=== PATIENT | male | born 2005 | race African-American/Black ===

== ENCOUNTER 2023-04-10 17:19 | Emergency (ER) | payer OTHER, SELFPAY ==
[2023-04-10 17:27] VITALS: BP 149/87; PULSE 103; RESP 20; TEMP 37.7; O2SAT 100
--- NOTE | 2023-04-10 17:29 | ED.DENTAL ---
HPI - Dental/Oral General Chief complaint: Dental/Oral Stated complaint: abcess tooth Time Seen by Provider: 04/10/23 17:29 Source: patient, RN notes reviewed and old records reviewed Mode of arrival: ambulatory Limitations: no limitations History of Present Illness HPI Narrative: 17-year-old male presents to the [facility] with complaints of dental pain. Stay he broke his tooth 4-5 days ago. To the affected is right lower posterior molar Related Data Home Medications Medication Instructions Recorded Confirmed quetiapine 200 mg tablet,extended 200 mg PO QPM 04/10/23 04/10/23 release 24 hr Allergies Allergy/AdvReac Type Severity Reaction Status Date / Time No Known Allergies Allergy Verified 04/10/23 17:35 Review of Systems Review of Systems: All systems reviewed & are unremarkable except as noted in HPI and below Constitutional: Constitutional: Reports no additional constitutional complaints Eyes: Eyes: Reports no additional eye complaints ENT: Reports as per HPI and Reports dental pain Cardiovascular: Cardiovascular: Reports no additional cardiovascular complaints, Denies chest pain and Denies dyspnea Respiratory: Respiratory: Reports no additional respiratory complaints, Denies chest congestion, Denies cough and Denies dyspnea Gastrointestinal: Gastrointestinal: Reports no additional gastrointestinal complaints, Denies abdominal pain, Denies nausea and Denies vomiting Musculoskeletal: Musculoskeletal: Reports no additional musculoskeletal complaints Integumentary/Breasts: Skin/Breast: Reports system reviewed and no additional complaints, except as docu Neurologic: Reports system reviewed and no additional complaints, except as documented Psychiatric: Psychiatric: Reports no additional psychiatric complaints Allergic/Immunologic: Allergic/Immunologic: Reports no additional allergic/immunologic complaints PMFSH Comments At the time of my signature, I reviewed and agree with the nursing past medical, surgical, social, and family history. There is no relevant family history pertinent to the patient complaint. Exam Const: General: cooperative, healthy appearing, comfortable, no acute distress, well developed, alert and well nourished Nutritional Appearance: well nourished Orientation/consciousness: patient oriented x3 Limitations: no limitations HENMT: Head: normal to inspection Ears: hearing grossly normal bilaterally and external ears normal Face/Nose/Sinus: Normal external nose present, Normal nares present, Normal nasal mucous membranes and turbinates present, normal facial exam and face symmetric Face and sinus: normal facial exam and face symmetric Mouth: Yes Normal oral and palatal mucosa present, Yes lip normal and Yes moist mucous membranes Teeth image: 1. Fracture tooth with surrounding erythema and swelling to the gingiva. No fluctuance. No facial swelling, no facial erythema Throat: posterior oropharynx normal and uvula midline Eyes: General: appearance normal, both eyes and all related structures Alignment and Position: alignment normal Periorbital: periorbital findings normal Pupils: Equal, round and reactive pupils present EOM: EOMs intact bilaterally Neck: Neck: normal visual inspection, full ROM, no lymphadenopathy and no meningeal signs Chest: Chest palpation & inspection: normal inspection of the chest Resp: Effort & Inspection: normal respiratory effort and able to speak in complete sentences Auscultation: clear to auscultation bilaterally, no crackles, no rales, no rhonchi and no wheezes Cardio: Rate: regular rate Rhythm: regular rhythm Back/Spine/Pelvis: Cervical Spine: cervical ROM normal Skin: General skin exam: normal color and no rashes or lesions noted Lesions: no lesions Rashes: no rashes Wounds: no wounds Neuro: General: patient oriented x3, gait normal, tone normal, moves all extremities and no meningeal signs Cranial nerves: Yes Equal, round and
== END 2023-04-10 17:45 | disposition home or self-care (01) ==
PROVIDERS: Emergency Provider Nurse Practitioner
DX: K02.9 Dental caries, unspecified (principal); F31.9 Bipolar disorder, unspecified
CPT/HCPCS: 99213; G0463

== ENCOUNTER 2023-07-23 15:24 | Emergency (ER) | payer OTHER, SELFPAY ==
[2023-07-23 15:29] VITALS: BP 124/70; PULSE 104; RESP 18; TEMP 36.9; O2SAT 100
--- NOTE | 2023-07-23 16:02 | ED.DENTAL ---
HPI - Dental/Oral General Chief complaint: Dental/Oral Stated complaint: Toothache/Facial Swelling Time Seen by Provider: 07/23/23 15:57 Source: patient and RN notes reviewed Mode of arrival: ambulatory Limitations: no limitations History of Present Illness HPI Narrative: Patient presents today with left lower tooth pain x1 week. No fever, shortness of breath, difficulty swallowing. Currently rates pain 7/10 and has been taking ibuprofen with mild relief. Patient does not have a dentist. Related Data Home Medications Medication Instructions Recorded Confirmed quetiapine 200 mg tablet,extended 200 mg PO QPM 04/10/23 07/23/23 release 24 hr Allergies Allergy/AdvReac Type Severity Reaction Status Date / Time No Known Allergies Allergy Verified 07/23/23 15:52 Review of Systems Review of Systems: CONSTITUTIONAL: Denies body aches, fever, chills, or sweats. EYES: Denies visual changes, redness, or discharge. ENT: Denies rhinorrhea, congestion, sore throat, or otalgia.+ tooth pain CARDIOVASCULAR: Denies chest pain, palpitations, or edema. RESPIRATORY: Denies cough or dyspnea. GASTROINTESTINAL: Denies abdominal pain, nausea, vomiting, or diarrhea. GENITOURINARY: Denies dysuria or hematuria. SKIN: Denies rash, itching, or wounds. MUSCULOSKELETAL: Denies back pain, joint pain, or myalgia. NEUROLOGIC: Denies headache, numbness, tingling, or weakness. PSYCH: Denies depression or anxiety. PMFSH Comments At time of signature, I have reviewed and agree with nursing past medical, surgical, social and family history unless otherwise noted. Please see nursing chart for further information. There is no relevant family history pertinent to the presenting complaint Exam Narrative: GENERAL: Well-appearing, well-nourished, and in no acute distress. HEAD: Normocephalic, atraumatic. EYES: EOMI. No redness or drainage. Conjunctivae normal. ENT: Mucous membranes pink and moist. Nares clear. No rhinorrhea. Pain to tooth number 19. No surrounding edema, erythema, periapical abscess. No trismus. Mild swelling of the left lower jaw line. No obvious fracture. Teeth are in pretty good condition. NECK: Normal AROM. Supple. No lymphadenopathy. CHEST: No respiratory distress. EXTREMITIES: Normal range of motion. No edema. SKIN: Warm, dry, no rash. Capillary refill normal. Normal skin turgor. NEURO: No focal deficits. Alert and oriented x3. Gait steady. PSYCH: Normal affect. No signs of depression or anxiety. Course Course Level of Care: Express Care Visit Vital Signs Vital signs: Vital Signs Temperature 98.4 F 07/23/23 15:29 Pulse Rate 104 H 07/23/23 15:29 Respiratory Rate 18 07/23/23 15:29 Blood Pressure 124/70 07/23/23 15:29 Pulse Oximetry 100 07/23/23 15:29 Oxygen Delivery Room Air 07/23/23 15:29 Temperature 98.4 F 07/23/23 15:29 Pulse Rate 104 H 07/23/23 15:29 Respiratory Rate 18 07/23/23 15:29 Blood Pressure 124/70 07/23/23 15:29 Pulse Oximetry 100 07/23/23 15:29 Oxygen Delivery Room Air 07/23/23 15:29 Reviewed MDM - Dental/Oral MDM Narrative Medical decision making narrative: Patient will be placed on a course of amoxicillin for presumed dental infection. Recommend dental follow-up. List of dentists will be provided to patient. ER precautions given. Differential Diagnosis Differential diagnosis: Likely gingival abscess, dental caries, toothache, dental abscess and fracture of tooth Critical Care Time Critical Care Time Critical Care Time: No Discharge Plan Discharge Clinical Impression: Toothache Patient Disposition: Home, Self-Care Condition: Stable Instructions: Antibiotic Form, Dental Abscess (ED), Toothache (ED) Additional Instructions: Please take the amoxicillin as prescribed until gone. Taking anti-inflammatories such as Aleve or ibuprofen to help with pain and swelling. Please follow-up with a dentist for further evaluati
== END 2023-07-23 16:04 | disposition home or self-care (01) ==
PROVIDERS: Emergency Provider Nurse Practitioner
DX: K08.89 Other specified disorders of teeth and supporting structures (principal); F25.9 Schizoaffective disorder, unspecified
CPT/HCPCS: 99213; G0463

== ENCOUNTER 2023-09-25 18:34 | Emergency (ER) | payer OTHER, SELFPAY ==
[2023-09-25 18:48] VITALS: BP 113/61; PULSE 88; RESP 20; TEMP 36.6; O2SAT 100
[2023-09-25 21:31] VITALS: O2SAT 100
--- NOTE | 2023-09-25 21:32 | PC.NURSE ---
Patient reports taking five 100 mg Seroquel tablets starting at 100 and the last pill taken at 1300 today. Patient reports no physical symptoms besides feeling tired .
--- NOTE | 2023-09-25 21:33 | ECG_ITS ---
Test Date: 2023-09-25 21:56:02 Measurements Intervals [place] Rate: 66 P: 18 [place]: 215 QRS: 48 QRSD: 89 T: 15 QT: 375 QTc: 394 Interpretive Statements SINUS RHYTHM WITH FIRST DEGREE AV BLOCK EARLY REPOLARIZATION [ST ELEVATION WITH NORMALLY INFLECTED T-WAVE] NORMAL ELECTROCARDIOGRAM No previous ECG available for comparison Electronically Signed On 09-26-2023 11:20:48 CDT by Kendall Tipton M.D.
[2023-09-25 21:35] VITALS: RESP 16
--- NOTE | 2023-09-25 21:46 | ED.OVERDOSE ---
HPI - Overdose General Chief Complaint: Overdose Stated Complaint: POSSIBLE DRUG OVERDOSE Time Seen by Provider: 09/25/23 21:10 Source: patient and police Mode of arrival: ambulatory Limitations: no limitations History of Present Illness HPI Narrative: Patient is a 17-year-old male who presents to the ED under custody of [facility] with concern for overdose. Patient reports he is prescribed Seroquel 100 mg daily for schizoaffective disorder/bipolar disorder. He reports he takes 1 per day, but does occasionally take 2. He reports today he took 5 pills total over a several hour time span, between 1:00 a.m. and early this afternoon. He states he did take these in an attempt to harm himself as he was getting arrested. He states he wanted to sleep and not wake up. He does report previous suicide attempts. He does routinely see psychiatrist, last saw 2 weeks ago. Patient denies any other concerns. Related Data Home Medications Medication Instructions Recorded Confirmed quetiapine 200 mg tablet,extended 200 mg PO QPM 04/10/23 07/23/23 release 24 hr Allergies Allergy/AdvReac Type Severity Reaction Status Date / Time No Known Allergies Allergy Verified 07/23/23 15:52 Review of Systems Review of Systems: CONSTITUTIONAL: Denies fever, chills, or sweats. GASTROINTESTINAL: Denies abdominal pain, nausea, vomiting NEUROLOGIC: Denies headache, dizziness, numbness, or weakness. PSYCHIATRIC: See HPI All systems reviewed & are unremarkable except as noted in HPI and below PMFSH Social History Social History Substance use type: marijuana Exam Narrative: GENERAL: Well appearing, well-nourished, non-toxic, in no acute distress. HEAD: Normocephalic, atraumatic. RESPIRATORY: Airway patent, respirations nonlabored. Clear to auscultation bilaterally, no rales, rhonchi, wheezing. CARDIOVASCULAR: Regular rate and rhythm MUSCULOSKELETAL: Moves all extremities. No gross deformities. SKIN: Warm, dry, normal color. NEURO: A&O X3. Speech clear. Cranial nerves II-XII grossly intact. Steady gait. No ataxic movements. PSYCHIATRIC: Flat affect. Normal interaction. Course Vital Signs Vital signs: Vital Signs Temperature 98 F 09/25/23 18:48 Pulse Rate 88 09/25/23 18:48 Respiratory Rate 20 09/25/23 18:48 Blood Pressure 113/61 09/25/23 18:48 Pulse Oximetry 100 09/25/23 18:48 Oxygen Delivery Room Air 09/25/23 18:48 Temperature 98.2 F 09/25/23 21:58 Pulse Rate 90 09/26/23 01:31 Respiratory Rate 15 09/26/23 01:31 Blood Pressure 121/78 09/26/23 01:31 Pulse Oximetry 100 09/26/23 01:31 Oxygen Delivery Room Air 09/25/23 21:31 MDM - Overdose MDM Narrative Medical decision making narrative: Patient presented to ED with concern for Seroquel overdose/misuse. Patient does report he took the additional pills in attempt to harm himself as he was getting arrested. Vital signs are stable. ED psych workup initiated. Poison control was contacted, advised past half-life/monitoring window given immediate release Seroquel. Recommended to obtain EKG, electrolytes. EKG with normal qtc, early repol changes, no concerning ST changes. Basic labs unremarkable. Stable electrolytes. Case cleared by poison control. Patient medically cleared to undergo psychiatric evaluation by crisis team. Patient was evaluated by crisis team and determined to meet criteria for safety plan and discharge. Patient fit for confinement. Discharged in law enforcement custody. Medical Records Attestation: I reviewed the patient's medical records. Lab Data Attestation: I reviewed the patient's lab results. 09/25/23 21:56 09/25/23 21:56 Labs: Lab Results 09/25/23 09/25/23 Range/Units 21:56 21:56 WBC 4.0 L (4.5-10.0) K/mm3 RBC 4.30 L (4.6-6.20) M/mm3 Hgb 14.2 (14.0-18.0) g/dL Hct 40.1 L (42.
--- NOTE | 2023-09-25 21:53 | PC.NURSE ---
Poison control contacted about patient consumption of Seroquel 100 mg x 5. Poison control states that appears to be the immediate release tablets that peak at 1-1.5 hours with a toxic level of 1000mg/day. She reports supportive care, baseline labs, EKG, maintain a Mg/K+ level at higher ranges if QT interval is prolonged, monitor for hypotension and seizures. Advised to call back when blood work returns.
[2023-09-25 21:58] VITALS: BP 124/70; PULSE 77; RESP 21; TEMP 36.8; O2SAT 100
[2023-09-25 22:04] LABS: Add Urine Microscopic? NO; Appearance Urine Clear (Clear); Basophils Percent Auto 0.8 % (0.2-1.2); Bilirubin Urine Negative (Negative); Blood Urine Negative (Negative); Color Urine Yellow (Yellow); Eosinophils Absolute Auto 0.2 K/mm3 (0-0.3); Eosinophils Percent Auto 5.1 % (0-4.4); Glucose Urine UA Negative (Negative); Hematocrit 40.1 % (42.0-52.0); Hemoglobin 14.2 g/dL (14.0-18.0); Immature Granulocyte Absolute 0.01 K/mm3 (0.00-0.031); Immature Granulocyte Percent A 0.3 % (0-0.5); Ketones Urine Negative (Negative); Leukocyte Esterase Ur Negative LEU/UL (Negative); Lymphocytes Absolute Auto 2.17 K/mm3 (0.9-3.2); Lymphocytes Percent Auto 54.8 % (18.3-44.2); Mean Corpuscular HGB Conc 35.4 g/dl (32-36); Mean Corpuscular Volume 93.3 fl (80-100); Mean Platelet Volume 10.2 fl (7.4-10.4); Monocytes Absolute Auto 0.4 K/mm3 (0.1-0.6); Monocytes Percent Auto 8.8 % (2.6-8.5); Neutrophils Absolute Auto 1.2 K/mm3 (1.3-6.7); Neutrophils Percent Auto 30.2 % (45.5-73.1); Nitrate Urine Negative (Negative); Platelet Count Result 197 k/mm3 (150-375); Protein Urine Negative (Negative); Red Cell Distribution Width 13.2 % (11.5-14.5); Specific Grav Ur 1.019 (1.001-1.035); Urobilinogen Urine 0.2 mg/dL (<2.0); pH Urine 7.5 (5.0-9.0)
[2023-09-25 22:22] LABS: Acetaminophen < 10 ug/mL (10-30); Ethanol < 10 mg/dL (<10); Salicylate < 1.0 mg/dL (2-20)
[2023-09-25 22:25] LABS: Alanine Aminotransferase 15 U/L (6-50); Albumin Level 4.6 g/dL (3.7-5.6); Alkaline Phosphatase 65 U/L (58-237); Anion Gap 11 mmol/L (4-12); Aspartate Amino Transferase 25 U/L (17-59); Bilirubin,Total 0.8 mg/dL (0.2-1.3); Blood Urea Nitrogen 10 mg/dL (8-21); Calcium 9.4 mg/dL (8.9-10.7); Carbon Dioxide 25 mmol/L (22-30); Chloride 102 mmol/L (98-107); Estimated CRCL calculation 125 ml/min; Estimated Glomerular Filt Rate > 60; Glucose 89 mg/dL (65-110); Magnesium 1.9 mg/dL (1.6-2.3); Potassium 4.6 mmol/L (3.4-5.0); Sodium 138 mmol/L (134-143)
[2023-09-25 22:26] LABS: Amphetamine Screen Urine Negative (Negative); Barbiturate Screen Urine Negative (Negative); Benzodiazepines Screen Urine Negative (Negative); Cannabinoid Screen Urine Negative (Negative); Cocaine Screen Urine Negative (Negative); Methadone Screen Urine Negative (Negative); Opiate Screen Urine Negative (Negative); Phencyclidine Screen Urine Negative (Negative)
[2023-09-25 22:41] LABS: SARS-CoV-2 RNA PCR Negative (Negative)
--- NOTE | 2023-09-25 22:52 | PC.NURSE ---
Poison control closes case due to probably subtoxic level and normal blood work. closed at [id number].
--- NOTE | 2023-09-25 23:40 | PC.NURSE ---
Patient provided sandwich and chips at this time. No distress noted.
--- NOTE | 2023-09-25 23:46 | PC.NURSE ---
Upon patient arrival, Patient was high risk according to the columbia scale. EDP and charge account clerk are aware that the PD is with patient. They report that they are comfortable having the patient being watched by PD in place of a sitter. Suicide watch sheet filled out by this RN.
--- NOTE | 2023-09-26 01:03 | PC.NURSE ---
social workers report they believe a safety plan will be the best for this patient.
[2023-09-26 01:31] VITALS: BP 121/78; BP 122/78; PULSE 90; RESP 15; RESP 16; O2SAT 100
== END 2023-09-26 01:32 ==
PROVIDERS: Emergency Provider Physician Assistant
DX: T43.592A Poisoning by other antipsychotics and neuroleptics, intentional self-harm, initial encounter (principal); F25.0 Schizoaffective disorder, bipolar type; Z20.822 Contact with and (suspected) exposure to COVID-19
CPT/HCPCS: 36415; 80053; 80307; 81003; 83735; 84443; 85025; 87635; 93005; 99283